=== PATIENT | male | born 1995 | race Caucasian/White ===

== ENCOUNTER 2022-06-20 17:53 | Emergency (ER) | payer OTHER ==
[2022-06-20 18:51] LABS: Urine Blood Negative (Negative); Urine Glucose Negative (Negative); Urine Protein Negative (Negative)
--- NOTE | 2022-06-20 19:52 | RAD REPORT ---
EXAM DESCRIPTION: CT - Stone Protocol - 06/20/2022 7:36 pm CLINICAL HISTORY: Abdominal pain. COMPARISON: None. TECHNIQUE: Computed axial tomography of the abdomen pelvis was obtained without oral or IV contrast. Lack of IV and oral contrast limits evaluation of solid organs, appendix, bowel, and vessels. Motta l reformatted images were obtained and reviewed. All CT scans are performed using dose optimization technique as appropriate and may include automated exposure control or mA/KV adjustment according to patient size. FINDINGS: A renal calculus is not seen. An ureteral calculus is not noted. A bladder calculus is not present. No hydronephrosis. Bladder is mildly distended The liver, spleen, pancreas and adrenals appear grossly normal There is no evidence of diverticulitis. The appendix appears normal IMPRESSION: Negative for a genitourinary calculus Mild bladder distention
--- NOTE | 2022-06-20 19:58 | ER ---
Nurse's Notes [facility] Name: Colby Velazquez Age: 26 yrs Sex: Male : 1995 Arrival Date: 06/20/2022 Time: 17:55 Bed 6 Private MD: Diagnosis: Urinary retention Presentation: 06/20 17:55 Chief complaint: Patient states: unable to urinate since yesterday. mb9 17:55 Coronavirus screen: At this time, the client does not indicate any symptoms associated mb9 with coronavirus-19. Ebola Screen: Patient denies travel to an Ebola-affected area in the 21 days before illness onset. Initial Sepsis Screen: Does the patient meet any 2 criteria? No. Patient's initial sepsis screen is negative. Does the patient have a suspected source of infection? No. Patient's initial sepsis screen is negative. Risk Assessment: Do you want to hurt yourself or someone else? Patient reports no desire to harm self or others. Onset of symptoms was June 19, 2022. 17:55 Method Of Arrival: Law Enforcement: [place] [employer] mb9 17:55 Acuity: JENNIFER 3 mb9 17:55 Note From Mary Unit. mb9 Historical: - Allergies: 17:59 PENICILLINS; mb9 - PMHx: 17:59 Hypertensive disorder; mb9 - PSHx: 17:59 Tonsillectomy; mb9 - Immunization history:: Adult Immunizations unknown. - Social history:: Smoking status: Patient/guardian denies using tobacco. Screenin:55 Abuse screen: Denies threats or abuse. Nutritional screening: No deficits noted. aa5 Tuberculosis screening: No symptoms or risk factors identified. Fall Risk None identified. Assessment: 17:55 General: Appears comfortable, Behavior is calm, cooperative. Pain: Denies pain. Neuro: aa5 Level of Consciousness is awake, alert, obeys commands, Oriented to person, place, time, situation. Cardiovascular: Heart tones S1 S2 present Rhythm is regular. Respiratory: Airway is patent Respiratory effort is even, unlabored, Respiratory pattern is regular, symmetrical, Breath sounds are clear bilaterally. GI: Abdomen is flat, non-distended, Bowel sounds present X 4 quads. Abd is soft and non tender X 4 quads. : Reports inability to void, since 06/19/22. EENT: No signs and/or symptoms were reported regarding the EENT system. Derm: Skin is pink, warm \T\ dry. Musculoskeletal: Range of motion: intact in all extremities. 18:54 Reassessment: Pt voided 50cc. Post Void bladder scan TV: 863mls, ACID RETORT OPERATOR notified. Pt c/o aa5 suprapubic pain, ACID RETORT OPERATOR was notified. . 18:54 Reassessment: Patient is alert, oriented x 3, equal unlabored respirations, skin aa5 warm/dry/pink. General: Appears uncomfortable. 19:01 Reassessment: Pt voided 410mls, clear yellow urine, pt reported no difficulty urinating aa5 at this time. Admason currently on hold per provider. . 19:01 Reassessment: Patient is alert, oriented x 3, equal unlabored respirations, skin aa5 warm/dry/pink. Patient states feeling better. Patient states symptoms have improved. 19:05 Reassessment: Report given to KENYATTA Fong. mb9 Vital Signs: 17:55 BP 138 / 68; Pulse 93; Resp 18 S; Temp 98.3(O); Pulse Ox 99% on R/A; Weight 72.57 kg mb9 (R); Height 6 ft. 2 in. (187.96 cm) (R); 20:19 BP 133 / 67; Pulse 64; Resp 16; Pulse Ox 99% on R/A; ll3 17:55 Body Mass Index 20.54 (72.57 kg, 187.96 cm) mb9 ED Course: 17:55 Patient arrived in ED. mw2 17:55 Arm band placed on Patient placed in an exam room, on a stretcher. mb9 17:55 Patient has correct armband on for positive identification. Bed in low position. Side aa5 rails up X 1. guard entrance registrar at bedside and 2 fdc guards outside the room. Pt is restrained by guards via handcuffs attached to ankle chains. 17:57 Zenia Milton RN is Primary Nurse. mb9 17:57 Carolina Schmid FNP-C is PHCP. snw 17:57 German Negrete MD is Attending Physician. snw 17:58 Triage completed. mb9 19:05 Report given to KENYATTA Fong and KENYATTA Brandon. aa5 19:[address] In Process Unspecified. EDMS 20:19 No provider procedures requiring assistance completed. IV discontinued, intact, ll3 bleeding controlled, No redness/swelling at site. Pressure dressing applied. Administered Medications: 20:19 Drug: Flomax (tamsulosin) 0.4 mg Route: PO; ll3 Medication: 20:20 VIS not applicable for this client. ll3 Outcome: 19:57 Discharge ordered by . snw 20:20 Discharged to Law Enforcement 3 20:20 Condition: stable 20:20 Instructed on discharge instructions, follow up and referral plans. Demonstrated understanding of instructions, follow-up care. 20:20 Patient left the ED. ll3 Signatures: Dispatcher [employer] EDNV Carolina Schmid, RUNNING INSTRUCTOR-C RUNNING INSTRUCTOR-Csnw Yudi Srivastava, RN RN aa5 Melody Rogers mw2 Aleksandr Dupree RN RN ll3 Zenia Milton RN RN mb9 Fred Garcia rs5 Corrections: (The following items were deleted from the chart) 19:00 18:59 Urine Culture+BA.LAB.BRZ drawn and sent. rs5 rs5 19:00 18:59 UA MICROSCOPIC+U.LAB.BRZ drawn and sent. rs5 rs5 19:02 18:54 Reassessment: Pt voided 50cc. Post Void bladder scan TV: 863mls, ACID RETORT OPERATOR notified. . aa5 aa5 19:16 19:05 Reassessment: Report given to KENYATTA Fong mb9 aa5
--- NOTE | 2022-06-20 19:58 | EDPHYS ---
Physician Documentation [facility] Name: Colby Velazquez Age: 26 yrs Sex: Male : 1995 Arrival Date: 06/20/2022 Time: 17:55 Bed 6 Private MD: ED Physician German Negrete HPI: 06/20 19:05 This 26 yrs old Male presents to ER via Law Enforcement with complaints of urinary snw retention. 19:05 The patient presents with urinary symptoms, retention. Onset: The symptoms/episode snw began/occurred acutely. Modifying factors: The symptoms are alleviated by nothing. Severity of symptoms: At their worst the symptoms were moderate, severe. "when I took a bunch of drugs". The patient has not recently seen a physician. Historical: - Allergies: 17:59 PENICILLINS; mb9 - PMHx: 17:59 Hypertensive disorder; mb9 - PSHx: 17:59 Tonsillectomy; mb9 - Immunization history:: Adult Immunizations unknown. - Social history:: Smoking status: Patient/guardian denies using tobacco. ROS: 19:05 Constitutional: Negative for fever, chills, and weight loss, Eyes: Negative for injury, snw pain, redness, and discharge, ENT: Negative for injury, pain, and discharge, Neck: Negative for injury, pain, and swelling, Cardiovascular: Negative for chest pain, palpitations, and edema, Respiratory: Negative for shortness of breath, cough, wheezing, and pleuritic chest pain, Abdomen/GI: Negative for abdominal pain, nausea, vomiting, diarrhea, and constipation, Back: Negative for injury and pain, MS/Extremity: Negative for injury and deformity, Skin: Negative for injury, rash, and discoloration, Neuro: Negative for headache, weakness, numbness, tingling, and seizure, Psych: Negative for depression, anxiety, suicide ideation, homicidal ideation, and hallucinations. 19:05 : Positive for urinary retention. Exam: 19:11 Constitutional: This is a well developed, well nourished patient who is awake, alert, snw and in no acute distress. Head/Face: Normocephalic, atraumatic. Eyes: Pupils equal round and reactive to light, extra-ocular motions intact. Lids and lashes normal. Conjunctiva and sclera are non-icteric and not injected. Cornea within normal limits. Periorbital areas with no swelling, redness, or edema. ENT: Nares patent. No nasal discharge, no septal abnormalities noted. Tympanic membranes are normal and external auditory canals are clear. Oropharynx with no redness, swelling, or masses, exudates, or evidence of obstruction, uvula midline. Mucous membranes moist. Neck: Trachea midline, no thyromegaly or masses palpated, and no cervical lymphadenopathy. Supple, full range of motion without nuchal rigidity, or vertebral point tenderness. No Meningismus. Chest/axilla: Normal chest wall appearance and motion. Nontender with no deformity. No lesions are appreciated. Cardiovascular: Regular rate and rhythm with a normal S1 and S2. No gallops, murmurs, or rubs. Normal PMI, no JVD. No pulse deficits. Respiratory: Lungs have equal breath sounds bilaterally, clear to auscultation and percussion. No rales, rhonchi or wheezes noted. No increased work of breathing, no retractions or nasal flaring. Back: No spinal tenderness. No costovertebral tenderness. Full range of motion. Skin: Warm, dry with normal turgor. Normal color with no rashes, no lesions, and no evidence of cellulitis. MS/ Extremity: Pulses equal, no cyanosis. Neurovascular intact. Full, normal range of motion. Neuro: Awake and alert, GCS 15, oriented to person, place, time, and situation. Cranial nerves II-XII grossly intact. Motor strength 5/5 in all extremities. Sensory grossly intact. Cerebellar exam normal. Normal gait. Psych: Awake, alert, with orientation to person, place and time. Behavior, mood, and affect are within normal limits. 19:11 Abdomen/GI: Inspection: abdomen appears normal, Bowel sounds: normal, Palpation: mild abdominal tenderness, moderate abdominal tenderness, in the right upper quadrant and right lower quadrant. 19:11 Special observations: pt voided 50ml on arrival, bladder scanner = 850ml, pt voided 400ml. Will CT for abd pain, pt declines lin for now.. Vital Signs: 17:55 BP 138 / 68; Pulse 93; Resp 18 S; Temp 98.3(O); Pulse Ox 99% on R/A; Weight 72.57 kg mb9 (R); Height 6 ft. 2 in. (187.96 cm) (R); 20:19 BP 133 / 67; Pulse 64; Resp 16; Pulse Ox 99% on R/A; ll3 17:55 Body Mass Index 20.54 (72.57 kg, 187.96 cm) mb9 MDM: 17:58 Patient medically screened. snw 19:58 Data reviewed: vital signs, nurses notes. Data interpreted: Pulse oximetry: on room air snw is 99 %. Interpretation: normal. Counseling: I had a detailed discussion with the patient and/or guardian regarding: the historical points, exam findings, and any diagnostic results supporting the discharge/admit diagnosis, the presence of at least one elevated blood pressure reading (>120/80) during this emergency department visit, lab results, radiology results, the need for outpatient follow up, to return to the emergency department if symptoms worsen or persist or if there are any questions or concerns that arise at home. Special discussion: I have referred the patient to see his PCP for further evaluation of high blood pressure. Based on the history and exam findings, there is no indication for further emergent testing or inpatient evaluation. I discussed with the patient/guardian the need to see the primary care provider for further evaluation of the symptoms. I discussed with the patient/guardian the need to see the urologist for further evaluation of the symptoms. 06/20 18:14 Order name: Urine Dipstick-Ancillary (obtain specimen); Complete Time: 18:54 snw 06/20 18:51 Order name: Urine Dipstick-Ancillary; Complete Time: 19:01 EDMS 06/20 19:01 Order name: Stone Protocol CT; Complete Time: 19:55 snw 06/20 18:53 Order name: Bladder Scanner: Post Void; Complete Time: 18:54 aa5 Administered Medications: 20:19 Drug: Flomax (tamsulosin) 0.4 mg Route: PO; ll3 Disposition: 06/21 08:12 Co-signature as Attending Physician, German Negrete MD I agree with the assessment and patrice plan of care. Disposition Summary: 06/20/22 19:57 Discharge Ordered Location: Home snw Condition: Stable snw Diagnosis - Urinary retention snw Followup: snw - With: Emergency Department - When: As needed - Reason: Worsening of condition Followup: snw - With: Private Physician - When: 1 - 2 days - Reason: Recheck today's complaints, Continuance of care, Re-evaluation by your physician Discharge Instructions: - Discharge Summary Sheet snw - Acute Urinary Retention, Male snw Forms: - Medication Reconciliation Form snw - Thank You Letter snw - Antibiotic Education snw - Prescription Opioid Use snw Signatures: Dispatcher [employer] EDGerman Reno MD MD cha Waters, Shelly, GLOBAL CMO-C GLOBAL CMO-Csnw Yudi Srivastava RN RN aa5 Aleksandr Dupree RN RN ll3 Zenia Milton RN RN mb9
[2022-06-20] MEDS ORDERED: TAMSULOSIN 0.4 MG SR CAP ONE (20:10)
[2022-06-20 20:48] VITALS: TEMP 98.3; O2SAT 99
[2022-06-20 20:49] VITALS: BP 133/67
== END 2022-06-20 20:20 | disposition home or self-care (01) ==
LOC: ER 17:53
DX: R33.9 Retention of urine, unspecified (principal); I10 Essential (primary) hypertension; Z88.0 Allergy status to penicillin
CPT/HCPCS: 74176; 76377; 81003; 99283